=== PATIENT | male | born 1990 | race American Indian/Alaskan Native ===

== ENCOUNTER 2018-07-09 02:01 | Emergency (ER) | payer MEDICAID, OTHER ==
[2018-07-09] MEDS ORDERED: Penicillin G Potassium 5 MILLUNITS in Sodium Chloride 0.9% 100 ML IV ONE (02:07)
[2018-07-09] MEDS ORDERED: Sodium Chloride 0.9% 1,000 ML IV ONE (02:07)
[2018-07-09] MEDS ORDERED: methylPREDNISolone Sodium Succinate 125 MG/2 ML SDV IVPUSH ONE (02:07)
[2018-07-09] MEDS ORDERED: Iopamidol 612 MG/ML 75 ML Bottle IVPUSH ONE (02:19)
--- NOTE | 2018-07-09 02:24 | EDM.PDOC ---
ED HPI GENERAL MEDICAL PROBLEM - General Chief Complaint: ENT Problem Stated Complaint: THROAT CLOSING [id number] Time Seen by Provider: 07/09/18 02:19 Source of Information: Reports: Patient History Limitations: Reports: No Limitations - History of Present Illness INITIAL COMMENTS - FREE TEXT/NARRATIVE: 1 hours h/o tonsil swelling unable to swallow throat sore. Throat Pain Score (Numeric/FACES): 5 - Related Data Allergies Allergy/AdvReac Type Severity Reaction Status Date / Time tramadol Allergy Mild Hives Verified 04/22/14 12:08 Home Meds: Home Meds B12/Levomefolate Calcium/B-6 [Folbic Rf Tablet] 1 tab PO BID 07/09/18 [History] Past Medical History - Past Health History Medical/Surgical History: Denies Medical/Surgical History ED ROS ENT - Review of Systems Review Of Systems: ROS reveals no pertinent complaints other than HPI. ED EXAM, ENT - Physical Exam Exam: See Below Exam Limited By: No Limitations General Appearance: Alert, WD/WN, Mild Distress, Other (distraught ) Ears: Hearing Grossly Normal Mouth/Throat: Peritonsillar Mass, Pharyngeal Erythema, Tonsillar Erythema, Tonsillar Exudates, Tonsillar Swelling (trismus, drooling), Other (right exudate , ) Head: Atraumatic Neck: Non-Tender, Full Range of Motion, Lymphadenopathy (L), Lymphadenopathy (R) Respiratory/Chest: No Respiratory Distress Cardiovascular: Regular Rate, Rhythm GI/Abdominal: Soft, Non-Tender Neurological: Alert, Oriented, Normal Cognition, Normal Gait, No Motor/Sensory Deficits Psychiatric: Anxious Skin: Warm, Dry, Normal Color Lymphatic: Other (cervical) Course - Vital Signs Last Recorded V/S: Last Vital Signs Temp 37.8 C 07/09/18 05:43 Pulse 76 07/09/18 05:43 Resp 14 07/09/18 05:43 BP 124/56 L 07/09/18 05:43 Pulse Ox 98 07/09/18 05:43 - Orders/Labs/Meds Orders: Active Orders 24 hr Category Date Time Status CULTURE BLOOD [BC] Stat Lab 07/09/18 02:10 Results CULTURE STREP A CONFIRMATION [RM] Stat Lab 07/09/18 02:12 Results STREP SCRN A RAPID W CULT CONF [RM] Stat Lab 07/09/18 02:12 Results Labs: Laboratory Tests 07/09/18 07/09/18 07/09/18 Range/Units 02:10 02:10 02:10 WBC 22.0 H (5.0-10.0) 10^3/uL RBC 4.82 (4.6-6.2) 10^6/uL Hgb 13.9 L (14.0-18.0) g/dL Hct 41.1 (40.0-54.0) % MCV 85.3 D (80-100) fL MCH 28.8 (27.0-34.0) pg MCHC 33.8 (33.0-35.0) g/dL Plt Count 381 (150-450) 10^3/uL Neut % (Auto) 69.1 (42.2-75.2) % Lymph % (Auto) 18.5 L (20.5-50.1) % [place] % (Auto) 11.9 H (2-8) % Eos % (Auto) 0.2 L (1.0-3.0) % Baso % (Auto) 0.3 (0.0-1.0) % Add Manual Diff Yes Neutrophils % (Manual) 78 H (42-75) % Lymphocytes % (Manual) 15 L (20-50) % Monocytes % (Manual) 7 (2-8) % Sodium 135 (135-145) mmol/L Potassium 3.2 L (3.6-5.0) mmol/L Chloride 99 L (101-111) mmol/L Carbon Dioxide 22.0 (21.0-31.0) mmol/L Anion Gap 17.2 BUN 8 (7-18) mg/dL Creatinine 1.0 (0.6-1.3) mg/dL Est Cr Clr Drug Dosing 113.56 mL/min Estimated GFR (MDRD) > 60 BUN/Creatinine Ratio 8.00 Glucose 104 (74-105) mg/dL Lactic Acid 3.2 H (0.5-2.2) mmol/L Calcium 9.0 (8.4-10.2) mg/dl Total Bilirubin 0.8 (0.2-1.0) mg/dL AST 37 (10-42) IU/L ALT 32 (10-60) IU/L Alkaline Phosphatase 89 (42-121) IU/L Total Protein 8.4 H (6.7-8.2) g/dl Albumin 4.3 (3.2-5.5) g/dl Globulin 4.1 Albumin/Globulin Ratio 1.05 /17/18 Range/Units 06:22 WBC 19.1 H (5.0-10.0) 10^3/uL RBC 4.92 (4.6-6.2) 10^6/uL Hgb 14.0 (14.0-18.0) g/dL Hct 42.3 (40.0-54.0) % MCV 86.0 (80-100) fL MCH 28.5 (27.0-34.0) pg MCHC 33.1 (33.0-35.0) g/dL Plt Count 362 (150-450) 10^3/uL Neut % (Auto) 92.5 H (42.2-75.2) % Lymph % (Auto) 5.1 L (20.5-50.1) % [place] % (Auto) 2.2 (2-8) % Eos % (Auto) 0.0 L (1.0-3.0) % Baso % (Auto) 0.2 (0.0-1.0) % Add Manual Diff Neutrophils % (Manual) (42-75) % Lymphocytes % (Manual) (20-50) % Monocytes % (Manual) (2-8) % Sodium (135-145) mmol/L Potassium (3.6-5.0) mmol/L Chloride (101-111) mmol/L Carbon Dioxide (21.0-31.0) mmol/L Anion Gap BUN (7-18) mg/dL Creatinine (0.6-1.3) mg/dL Est Cr Clr Drug Dosing mL/min Estimated GFR (MDRD) BUN/Creatinine Ratio Glucose (74-105) mg/dL Lactic Acid (0.5-2.2) mmol/L Calcium (8.4-10.2) mg/dl Total Bilirubin (0.2-1.0) mg/dL AST (10-42) IU/L ALT (10-60) IU/L Alkaline Phosphatase (42-121) IU/L Total Protein (6.7-8.2) g/dl Albumin (3.2-5.5) g/dl Globulin Albumin/Globulin Ratio Meds: Medications Discontinued Medications Generic Name Dose Route Start Last Admin Trade Name Freq PRN Reason Stop Dose Admin Penicillin G Potassium 5 100 mls @ 200 mls/hr 07/09/18 02:07 07/09/18 02:48 millunits/ Sodium Chloride IV 07/09/18 02:36 200 mls/hr ONETIME ONE Administration Sodium Chloride 1,000 mls @ 999 mls/hr 07/09/18 02:07 07/09/18 02:42 Normal Saline IV 07/09/18 03:07 999 mls/hr .BOLUS ONE Administration Iopamidol 75 ml 07/09/18 02:19 07/09/18 02:42 Isovue-300 (61%) IVPUSH 07/09/18 02:20 75 ml ONETIME ONE Administration Methylprednisolone Sodium Succinate 125 mg 07/09/18 02:07 07/09/18 02:43 Solu-Medrol IVPUSH 07/09/18 02:08 125 mg ONETIME ONE Administration - Re-Assessments/Exams Free Text/Narrative Re-Assessment/Exam: 07/09/18 03:15 results discussed with pt who is feeling better s/p IV fluids + ABX. 07/09/18 06:52 repeat cbc 19,500. pt feeling much better. been eating ice cream and drinking liquids. Departure - Departure Time of Disposition: 07:30 Disposition: Home, Self-Care 01 Condition: Good Clinical Impression: Tonsillitis - Discharge Information Instructions: Tonsillitis, [id number] Referrals: Liam Ashley [Primary Care Provider] - Forms: ED Department Discharge Additional Instructions: 1) avoid solid foods and scratchy foods 2) take tylenol or motrin as needed for fever 3) recvheck if there is any change or concern rx given; z-joe - My Orders Last 24 Hours: My Active Orders 07/09/18 02:10 CULTURE BLOOD [BC] Stat 07/09/18 02:12 CULTURE STREP A CONFIRMATION [RM] Stat STREP SCRN A RAPID W CULT CONF [RM] Stat - Assessment/Plan Last 24 Hours: My Active Orders 07/09/18 02:10 CULTURE BLOOD [BC] Stat 07/09/18 02:12 CULTURE STREP A CONFIRMATION [RM] Stat STREP SCRN A RAPID W CULT CONF [RM] Stat
[2018-07-09 02:39] LABS: ANION GAP 17.2; CHLORIDE,CL 99 mmol/L (101-111); SODIUM,NA 135 mmol/L (135-145)
== END 2018-07-09 07:35 | disposition home or self-care (01) ==
LOC: DL.ED 02:01
DX: J03.90 Acute tonsillitis, unspecified (principal); Z88.5 Allergy status to narcotic agent
CPT/HCPCS: 36415; 70491; 80053; 83605; 85025; 87040; 87081; 87430; 96365; 96375; 99283; J2540; J2930; J7030; J7050; Q9967

== ENCOUNTER 2018-07-14 00:40 | Emergency (ER) | payer MEDICAID ==
[2018-07-14] MEDS ORDERED: Sodium Chloride 0.9% 10 ML Syringe FLUSH PRN (01:29)
[2018-07-14] MEDS ORDERED: Morphine 4 MG/ML Syringe IVPUSH ONE (01:29)
[2018-07-14] MEDS ORDERED: Ondansetron 4 MG/2 ML SDV IV ONE (01:29)
[2018-07-14] MEDS ORDERED: Ketorolac 30 MG/ML SDV IVPUSH ONE (01:29)
[2018-07-14] MEDS ORDERED: Sodium Chloride 0.9% 1,000 ML IV ONE (01:29)
[2018-07-14] MEDS ORDERED: Clindamycin Phosphate 900 MG in Sodium Chloride 0.9% 100 ML IV ONE (01:30)
[2018-07-14] MEDS ORDERED: Dexamethasone 4 MG/ML SDV IVPUSH ONE (01:30)
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
== END 2018-07-14 01:39 | disposition left against medical advice (07) ==
LOC: DL.ED 00:40
DX: J36 Peritonsillar abscess (principal); F17.210 Nicotine dependence, cigarettes, uncomplicated; Z88.8 Allergy status to other drugs, medicaments and biological substances
CPT/HCPCS: 87081; 87430; 99283

== ENCOUNTER 2018-07-14 02:25 | Emergency (ER) | payer MEDICAID ==
[2018-07-14] MEDS ORDERED: Sodium Chloride 0.9% 10 ML Syringe FLUSH PRN (02:26)
[2018-07-14] MEDS ORDERED: Dexamethasone 4 MG/ML SDV IVPUSH ONE (02:27)
[2018-07-14] MEDS ORDERED: Ondansetron 4 MG/2 ML SDV IV ONE (02:27)
[2018-07-14] MEDS ORDERED: Sodium Chloride 0.9% 1,000 ML IV ONE (02:27)
[2018-07-14] MEDS ORDERED: Clindamycin Phosphate 900 MG in Sodium Chloride 0.9% 100 ML IV ONE (02:27)
[2018-07-14] MEDS ORDERED: Ketorolac 30 MG/ML SDV IVPUSH ONE (02:27)
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
[2018-07-14 03:07] LABS: ANION GAP 11.2; CHLORIDE,CL 101 mmol/L (101-111); SODIUM,NA 134 mmol/L (135-145)
[2018-07-14] MEDS ORDERED: Iopamidol 612 MG/ML 75 ML Bottle IVPUSH ONE (03:15)
[2018-07-14] MEDS ORDERED: Iopamidol 612 MG/ML 100 ML Bottle IVPUSH ONE (03:16)
== END 2018-07-14 04:45 ==
LOC: DL.ED 02:25
DX: J36 Peritonsillar abscess (principal); Z88.8 Allergy status to other drugs, medicaments and biological substances
CPT/HCPCS: 36415; 70491; 80053; 83605; 85025; 86140; 87040; 96365; 96366; 96368; 96375; 99284; J1100; J1885; J2405; J3490; J7030; J7050; Q9967

== ENCOUNTER 2018-08-04 14:16 | Inpatient (IN) | payer SELFPAY ==
[2018-08-04] MEDS ORDERED: Sodium Chloride 0.9% 10 ML Syringe FLUSH PRN (15:00)
[2018-08-04] MEDS ORDERED: diphenhydrAMINE 50 MG/ML SDV IVPUSH ONE (15:03)
[2018-08-04] MEDS ORDERED: Sodium Chloride 0.9% 1,000 ML IV ONE (15:03)
[2018-08-04] MEDS ORDERED: Vancomycin 500 MG SDV IV ONE (15:04)
[2018-08-04] MEDS ORDERED: fentaNYL 100 MCG/2 ML SDV ONE (15:28)
[2018-08-04 15:42] LABS: ANION GAP 12.7; CHLORIDE,CL 101 mmol/L (101-111); SODIUM,NA 135 mmol/L (135-145)
[2018-08-04] MEDS ORDERED: Lidocaine 1% 30 ML SDV ONE (15:45)
[2018-08-04] MEDS ORDERED: fentaNYL 100 MCG/2 ML SDV IVPUSH ONE (16:38)
[2018-08-04] MEDS ORDERED: Morphine 2 MG/ML Syringe IVPUSH PRN (17:00)
[2018-08-04] MEDS ORDERED: oxyCODONE 5 MG Tab PO PRN (17:00)
[2018-08-04] MEDS ORDERED: Sodium Chloride 0.9% 1,000 ML IV SCH (17:00)
[2018-08-04] MEDS ORDERED: Acetaminophen 325 MG Tab PO PRN (17:00)
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
[2018-08-04] MEDS ORDERED: Propofol 200 MG/20 ML SDV IV ONE (18:06)
[2018-08-04] MEDS ORDERED: fentaNYL 100 MCG/2 ML SDV IV ONE (18:06)
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
[2018-08-04] MEDS ORDERED: B12 PO SCH (21:00)
[2018-08-04] MEDS ORDERED: LEVOMEFOLATE CALCIUM PO SCH (21:00)
[2018-08-04] MEDS ORDERED: B6 PO SCH (21:00)
[2018-08-04] MEDS ORDERED: Heparin Sodium 5,000 Units/ML Vial SUBCUT SCH (22:00)
== END 2018-08-04 18:07 | disposition left against medical advice (07) | DRG 603 ==
LOC: DL.ED 14:16 → UNDOADMIN 16:55 → DL.MS 16:55
PROVIDERS: ADMIT Hospitalist; ATTEND Hospitalist
PROC: 0X940ZX Drainage of Right Axilla, Open Approach, Diagnostic (ICD-10-PCS; principal; 2018-08-04)
DX: L03.111 Cellulitis of right axilla (principal); L02.421 Furuncle of right axilla; F17.210 Nicotine dependence, cigarettes, uncomplicated; Z88.8 Allergy status to other drugs, medicaments and biological substances; Z79.899 Other long term (current) drug therapy
CPT/HCPCS: 01610; 36415; 80053; 83605; 85025; 86140; 87040; 87070; 87186; J1200; J2704; J3010; J3370; J7030; J7050

== ENCOUNTER 2019-12-23 09:21 | Emergency (ER) | payer MEDICAID, OTHER ==
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
[2019-12-23] MEDS ORDERED: Sodium Chloride 0.9% 1,000 ML IV ONE (09:23)
[2019-12-23] MEDS ORDERED: Famotidine 20 MG/2 ML SDV IVPUSH ONE (09:23)
[2019-12-23 10:00] LABS: ANION GAP 9.5; CHLORIDE,CL 103 mmol/L (101-111); SODIUM,NA 134 mmol/L (135-145)
== END 2019-12-23 11:06 | disposition home or self-care (01) ==
LOC: DL.ED 09:21
DX: K29.20 Alcoholic gastritis without bleeding (principal); Z88.5 Allergy status to narcotic agent
CPT/HCPCS: 36415; 80053; 80305-QW; 81001; 82150; 83690; 85025; 87086; 96374; 99284-25; G0480; J3490

== ENCOUNTER 2023-01-20 23:39 | Emergency (ER) | payer MEDICAID ==
[2023-01-20] MEDS: Iopamidol 612 MG/ML 100 ML Bottle IVPUSH ONE (23:55)
[2023-01-21] MEDS: HYDROmorphone 0.5 MG/0.5 ML Syringe IVPUSH ONE (00:01)
[2023-01-21] MEDS: Diphtheria,Pertussis(Acell),Tetanus Vaccine 0.5 ML Syringe IM ONE (00:06)
[2023-01-21 00:07] LABS: ANION GAP 17.4 mEq/L (7-13); CHLORIDE,CL 105 mmol/L (98-107); SODIUM,NA 142 mmol/L (136-145)
[2023-01-21 00:13] LABS: ESTIMATED GFR 80 mL/min (>=60)
== END 2023-01-21 00:29 ==
LOC: DL.ED 23:39
DX: S31.110A Laceration without foreign body of abdominal wall, right upper quadrant without penetration into peritoneal cavity, initial encounter (principal); Z23 Encounter for immunization; Z88.5 Allergy status to narcotic agent; W26.0XXA Contact with knife, initial encounter
CPT/HCPCS: 36415; 71045; 71260; 74177; 80053; 83605; 85025; 87040; 90471; 90715; 93005; 93010; 96374; 99285; 99285-25; J1170; Q9967

== ENCOUNTER 2023-03-27 01:34 | Emergency (ER) | payer MEDICAID ==
[2023-03-27] MEDS ORDERED: Sodium Chloride 0.9% 10 ML Syringe FLUSH PRN (01:48)
[2023-03-27 02:00] LABS: BASOPHILS PERCENT AUTO 0.5 % (0.0-1.0); EOSINOPHILS PERCENT AUTO 1.6 % (1.0-3.0); HEMATOCRIT 48.6 % (40.0-54.0); HEMOGLOBIN 16.1 g/dL (14.0-18.0); MEAN CORPUSCULAR HEMOGLOBIN 28.2 pg (27.0-34.0); MEAN CORPUSCULAR HGB CONC 33.1 g/dL (33.0-35.0); MEAN CORPUSCULAR VOLUME 85.3 fL (80-100); MONOCYTES PERCENT AUTO 5.5 % (2-8); NEUTROPHILS PERCENT AUTO 59.4 % (42.2-75.2); PLATELET COUNT,PLT 451 10^3/uL (150-450); WHITE BLOOD CELL COUNT,WBC 10.8 10^3/uL (5.0-10.0)
[2023-03-27 02:21] LABS: AMPHETAMINES,URINE POSITIVE (NEGATIVE); BARBITURATES,URINE NEGATIVE (NEGATIVE); BENZODIAZEPINE,URINE NEGATIVE (NEGATIVE); MDMA (ECSTASY), URINE POSITIVE (NEGATIVE); METHADONE,URINE NEGATIVE (NEGATIVE); METHAMPHETAMINES,URINE POSITIVE (NEGATIVE); OPIATES,URINE NEGATIVE (NEGATIVE); OXYCODONE,URINE NEGATIVE (NEGATIVE); PHENCYCLIDINE,URINE NEGATIVE (NEGATIVE); TCA,URINE NEGATIVE (NEGATIVE)
[2023-03-27 02:23] LABS: ALANINE AMINOTRANSFERASE,ALT 47 U/L (16-63); ALBUMIN 3.9 g/dL (3.4-5.0); ALKALINE PHOSPHATASE 119 U/L (46-116); ANION GAP 10.4 mEq/L (7-13); ASPARTATE AMNIOTRANSFERASE,AST 32 U/L (15-37); BILIRUBIN TOTAL 0.2 mg/dL (0.2-1.0); BLOOD UREA NITROGEN,BUN 13 mg/dL (7-18); BUN/CREATININE RATIO 10.4 (No establ ref range); CALCIUM 7.9 mg/dL (8.5-10.1); CARBON DIOXIDE,CO2 22 mmol/L (21-32); CHLORIDE,CL 104 mmol/L (98-107); CREATININE 1.25 mg/dL (0.70-1.30); ESTIMATED GFR 78 mL/min (>=60); ETHANOL BLOOD MEDICAL 307 mg/dL (0); GLUCOSE RANDOM 125 mg/dL (70-99); POTASSIUM,K 3.4 mmol/L (3.5-5.1); PROTEIN TOTAL,TP 7.8 g/dL (6.4-8.2); SODIUM,NA 133 mmol/L (136-145)
[2023-03-27] MEDS ORDERED: Sodium Chloride 0.9% 1,000 ML IV ONE (02:27)
== END 2023-03-27 04:58 ==
LOC: DL.ED 01:34
DX: S02.2XXA Fracture of nasal bones, initial encounter for closed fracture (principal); S02.40CA Maxillary fracture, right side, initial encounter for closed fracture; S02.841A Fracture of lateral orbital wall, right side, initial encounter for closed fracture; S02.40EA Zygomatic fracture, right side, initial encounter for closed fracture; S01.81XA Laceration without foreign body of other part of head, initial encounter; F10.929 Alcohol use, unspecified with intoxication, unspecified; F15.10 Other stimulant abuse, uncomplicated; F12.10 Cannabis abuse, uncomplicated; Y90.8 Blood alcohol level of 240 mg/100 ml or more; Z88.5 Allergy status to narcotic agent; Y04.0XXA Assault by unarmed brawl or fight, initial encounter
CPT/HCPCS: 12013; 36415; 70450; 70486; 72125; 80053; 80305-QW; 80307; 85025; 96360; 99284; 99284-25; J3490; J7030